=== PATIENT | male | born 1935 | race Caucasian/White ===

== ENCOUNTER → 2019-04-03 | Outpatient (CLI) | payer MEDICARE ==
[~2019-04-03] MED LIST: ASPIRIN 81M81 MG/TA2 PO; ATORVASTATIN; CARDURA 2MG2 MG PO; HCTZ 25MG TAB25 MG PO; LIPITOR20 MG PO; LORTAB 5/500 501 TAB PO; MULTI VITAMINS1 TAB PO; TENORMIN 2525 MG/TAB PO; TIROSINT150 MCG PO; UNABLE; XARELTO10 MG PO
== END ==
LOC: COL.VAS 10:57
DX: M79.89 Other specified soft tissue disorders (principal)

== ENCOUNTER 2022-08-28 14:24 | Emergency (ER) | payer MEDICARE ==
[~2022-08-28] VITALS: Ht 177.8 cm; Wt 109.1 kg
[2022-08-28 14:40] VITALS: TEMP 98.7
[2022-08-28 17:33] LABS: BASO % 0.3 % (0.0-2.0); EOS % 0.2 % (0.0-4.0); GRAN # 7.6 K/mm3 (1.4-6.5); GRAN % 63.3 % (42.2-75.2); HEMATOCRIT 40.1 % (42.0-52.0); HEMOGLOBIN 13.9 g/dl (13.5-18.0); LYMPH # 3.1 K/mm3 (1.2-3.4); LYMPH % 25.5 % (20.0-51.0); MEAN CELL VOLUME 95 fl (80.0-100.0); MEAN CORPUSCULAR HEMOGLOBIN 33 pg (27-31); MEAN CORPUSCULAR HGB CONC 35 g/dl (33.0-37.0); MONO # 1.3 K/mm3 (0.1-0.6); MONO % 10.3 % (1.7-9.3); PLATELET COUNT 214 K/mm3 (130-400); RED BLOOD COUNT 4.22 M/mm3 (4.20-5.60); REDCELL DISTRIBUTION WIDTH-CV 13.1 % (11.5-14.5)
[2022-08-28 17:45] LABS: CALCIUM 10.1 mg/dL (8.4-10.2); CREATININE, serum 1.13 mg/dL (0.72-1.25); POTASSIUM 3.7 mmol/L (3.5-4.5)
[2022-08-28] MEDS ORDERED: TYLENOL 500MG500 MG PO (20:28)
[2022-08-28] MEDS ORDERED: ROBAXIN 50500 MG/TAB PO (20:28)
[2022-08-28 20:40] VITALS: BP 156/80; PULSE 76
== END 2022-08-28 20:40 | disposition home or self-care (01) ==
LOC: COL.ER 14:24
PROVIDERS: Emergency Medicine
DX: M54.2 Cervicalgia (principal); M06.9 Rheumatoid arthritis, unspecified; I65.01 Occlusion and stenosis of right vertebral artery; Z79.01 Long term (current) use of anticoagulants; Z91.128 Patient's intentional underdosing of medication regimen for other reason
CPT/HCPCS: J1885; Q9967